=== PATIENT | female | born 1960 | race African-American/Black ===

== ENCOUNTER 2017-09-23 12:22 | Day surgery (SDC) | payer OTHER ==
[2017-09-21 15:23] VITALS: BMI 34.5
[2017-09-23] MEDS ORDERED: PROPOFOL 20 ML ONE ×3 (14:40→15:34)
[2017-09-23] MEDS ORDERED: MIDAZOLAM HCL 2 MG/2 ML SINGLE DOSE VIAL ONE (14:41)
[2017-09-23] MEDS ORDERED: DEXAMETHASONE SOD PHOSPHATE 4 MG/1 ML VIAL ONE (14:42)
[2017-09-23] MEDS ORDERED: ceFAZolin SODIUM 1 GM VIAL ONE (14:42)
[2017-09-23] MEDS ORDERED: LIDOCAINE HCL 2% JELLY (5 ML/TUBE) ONE (14:42)
[2017-09-23] MEDS ORDERED: ONDANSETRON 4 MG/2 ML VIAL ONE (14:42)
[2017-09-23] MEDS ORDERED: KETOROLAC TROMETHAMINE 30 MG/1 ML VIAL ONE (14:42)
[2017-09-23] MEDS ORDERED: EPINEPHrine 1:1,000 1 MG/1 ML - 30ML VIAL (INJECTION) ONE (15:38)
[2017-09-23] MEDS ORDERED: BUPIVACAINE HCL/PF 2.5 MG/ML - 30 ML VIAL IJ ONE (15:39)
[2017-09-23] MEDS ORDERED: BUPIVACAINE HCL/PF 0.25% (2.5MG/ML) 10 ML VIAL IJ ONE (15:40)
[2017-09-23] MEDS ORDERED: ONDANSETRON 4 MG/2 ML VIAL IVPUSH PRN (15:58)
[2017-09-23] MEDS ORDERED: PROMETHAZINE HCL 25 MG/1 ML VIAL IVPUSH PRN (15:58)
[2017-09-23] MEDS ORDERED: oxyCODONE HCL 5 MG TABLET PO PRN ×2 (15:58)
[2017-09-23] MEDS ORDERED: LACTATED RINGERS SOLUTION 1,000 ML IV SCH (16:00)
[2017-09-23] MEDS ORDERED: PROMETHAZINE HCL 25 MG/1 ML VIAL ONE (17:13)
[2017-09-23 19:46] VITALS: BP 142/80; PULSE 76; TEMP 97.8
--- NOTE | 2017-09-26 01:51 | OP ---
DATE OF OPERATION: 09/23/2017 SURGEON: Ricardo Mesa MD OPERATOR CAVITY PUMP: [place] PREOPERATIVE DIAGNOSIS: 1. Right knee mediolateral meniscal tear. 2. Right knee cartilage injury. 3. Right knee synovitis. POSTOPERATIVE DIAGNOSIS: 1. Right knee mediolateral meniscal tear. 2. Right knee cartilage injury. 3. Right knee synovitis. PROCEDURE: 1. Right knee arthroscopy with partial meniscectomy of mediolateral meniscus. 2. Right knee arthroscopy with chondroplasty and abrasioplasty. 3. Right knee arthroscopy with synovectomy and removal of medial plica. FINDINGS: 1. Medial meniscus body posterior horn tear. 2. Lateral meniscus posterior horn tear. 3. Synovitis of patellofemoral, medial and lateral notch. 4. Central grade 2-3 cartilage injury of the femoral condyle. 5. ACL and PCL intact. 6. Diffuse grade 1-2 cartilage injury of lateral tibial plateau with grade 1 changes of the lateral femoral condyle. 7. Central grade 2-3 cartilage injury of the patella with central grade 4 changes of the patella. PROCEDURE: Informed consent was obtained. The patient was taken to the operating room where the right lower extremity was prepped and draped in a sterile fashion. A tourniquet was placed on the right upper thigh but not inflated. Using standard arthroscopic technique, a lateral incision and portal were made which allowed for introduction of the camera into the suprapatellar bursa. This was then taken to the medial joint line where under direct visualization, a medial incision and portal were made. Excessive synovium noted in the medial, lateral, patellofemoral and notch area was removed by the up-biting shaver and Bovie cautery. This was found to bring inflammatory tissue into the joint surface, a source of joint pain and dysfunction. Probing of the medial and lateral meniscus found tears described in the findings. These were removed with an up-biting shaver and taken back to a stable rim. Grade 2-3 degenerative changes were treated with chondroplasty, removing all flaking surfaces with low setting Bovie used along the periphery. Grade 4 changes were treated with abrasion-plasty. All areas of the knee were once again re-examined. The knee was then drained. A single suture was placed on all portals. Sterile dressing was placed. The patient was transferred to the recovery room. RICARDO MESA M.D. EWELINA/[id number]
== END 2017-09-23 19:40 | disposition home or self-care (01) ==
LOC: FASU 12:22
PROVIDERS: ATTEND Orthopaedic Surgery
PROC: 0SBC4ZZ Excision of Right Knee Joint, Percutaneous Endoscopic Approach (ICD-10-PCS; 2017-09-23)
PROC: 0SBC4ZZ Excision of Right Knee Joint, Percutaneous Endoscopic Approach (ICD-10-PCS; 2017-09-23)
PROC: 0SBC4ZZ Excision of Right Knee Joint, Percutaneous Endoscopic Approach (ICD-10-PCS; principal; 2017-09-23 14:55)
DX: S83.241A Other tear of medial meniscus, current injury, right knee, initial encounter (principal); S83.281A Other tear of lateral meniscus, current injury, right knee, initial encounter; S83.8X1A Sprain of other specified parts of right knee, initial encounter; M65.861 Other synovitis and tenosynovitis, right lower leg; X58.XXXA Exposure to other specified factors, initial encounter; Y93.9 Activity, unspecified; Y92.9 Unspecified place or not applicable
CPT/HCPCS: 94760

== ENCOUNTER 2024-10-11 06:07 | Day surgery (SDC) | payer OTHER ==
[2024-10-05 15:30] VITALS: BMI 34.7
[2024-10-11] MEDS ORDERED: PROPOFOL 100 ML ONE (07:11)
[2024-10-11] MEDS ORDERED: MIDAZOLAM HCL 2 MG/2 ML SINGLE DOSE VIAL ONE (07:11)
[2024-10-11] MEDS ORDERED: LIDOCAINE HCL/PF 2% SDV 5ML VIAL ONE (07:11)
[2024-10-11] MEDS ORDERED: KETOROLAC TROMETHAMINE 60 MG/2 ML VIAL ONE (07:24)
[2024-10-11] MEDS ORDERED: VANCOMYCIN 1,000 MG VIAL (RESTRICTED TO ID ONLY) ONE (07:24)
[2024-10-11] MEDS ORDERED: BUPIVACAINE HCL/PF 2.5 MG/ML - 30 ML VIAL IJ ONE (07:24)
[2024-10-11] MEDS ORDERED: BUPIVACAINE HCL/PF 0.5% (5MG/ML) 10 ML VIAL ONE (07:36)
[2024-10-11] MEDS ORDERED: ROPIVACAINE HCL/PF 100 MG/20 ML VIAL ONE (07:37)
[2024-10-11] MEDS ORDERED: TRANEXAMIC ACID 1000 MG/10 ML VIAL ONE (08:23)
[2024-10-11] MEDS ORDERED: ceFAZolin SODIUM 1 GM VIAL ONE (08:23)
[2024-10-11] MEDS ORDERED: GLYCOPYRROLATE 0.2 MG/1 ML VIAL ONE (08:41)
[2024-10-11] MEDS ORDERED: PROPOFOL 40 ML ONE ×2 (09:48→09:52)
[2024-10-11] MEDS ORDERED: ONDANSETRON 4 MG/2 ML VIAL ONE (10:41)
[2024-10-11] MEDS ORDERED: ONDANSETRON 4 MG/2 ML VIAL IVPUSH PRN (11:30)
[2024-10-11] MEDS ORDERED: MAGNESIUM HYDROX 2400MG/30ML ORAL SUSPENSION 30 ML CUP PO PRN (11:30)
[2024-10-11] MEDS ORDERED: LACTATED RINGERS SOLUTION 1,000 ML IV SCH (11:30)
[2024-10-11] MEDS ORDERED: PROMETHAZINE HCL 25 MG/1 ML VIAL IVPB PRN (11:30)
[2024-10-11] MEDS ORDERED: MAG HYDROX/AL HYDROX/SIMETH 30 ML UNIT-DOSE CUP PO PRN (11:30)
[2024-10-11] MEDS: ACETAMINOPHEN 1000 MG/100 ML BAG IVPB ONE (12:25)
[2024-10-11] MEDS ORDERED: ACETAMINOPHEN INJECTION 100 ML ONE (12:25)
[2024-10-11 13:02] VITALS: RESP 18
[2024-10-11] MEDS: CEFAZOLIN SODIUM 2 GM in DEXTROSE 5%-WATER 100 ML IVPB ONE (13:30)
[2024-10-11] MEDS: oxyCODONE HCL 5 MG TABLET PO PRN (15:19)
[2024-10-11] MEDS: CEFAZOLIN SODIUM 2 GM in DEXTROSE 5%-WATER 100 ML IVPB SCH (15:19)
[2024-10-11] MEDS: LACTATED RINGERS SOLUTION 1,000 ML IV SCH (15:24)
[2024-10-11] MEDS: ACETAMINOPHEN 325 MG TABLET (FP) PO SCH (18:42)
[2024-10-11] MEDS: GABAPENTIN 300 MG CAPSULE PO SCH (22:00)
[2024-10-11] MEDS: ASPIRIN 81 MG CHEWABLE TABLETS PO SCH (22:00)
[2024-10-11] MEDS: SENNOSIDES/DOCUSATE COMBO (SENNA PLUS) TABLET (UD) PO SCH (22:00)
[2024-10-12] MEDS: oxyCODONE HCL 5 MG TABLET PO PRN (09:19)
[2024-10-12] MEDS: MULTIVITAMINS (DAILY MVI) TABLET (FP) PO SCH (09:21)
[2024-10-12] MEDS: PANTOPRAZOLE 40 MG TABLET PO SCH (09:21)
[2024-10-12] MEDS: CHOLECALCIFEROL (VIT D3) 1,000 UNIT (25 MCG) TABLET PO SCH (09:22)
[2024-10-12] MEDS: ONDANSETRON 4 MG/2 ML VIAL IVPUSH PRN (09:22)
[2024-10-12] MEDS ORDERED: amLODIPine BESYLATE 5 MG TABLET (FP) PO SCH (10:00)
[2024-10-12] MEDS ORDERED: LOSARTAN POTASSIUM 50 MG TABLET PO SCH (10:00)
[2024-10-12] MEDS ORDERED: oxyCODONE HCL 5 MG TABLET PO PRN ×2 (12:08→12:09)
[2024-10-12] MEDS: amLODIPine BESYLATE 5 MG TABLET (FP) PO SCH (13:06)
[2024-10-12] MEDS: traMADol HCL 50 MG TABLET PO PRN (13:07)
[2024-10-12] MEDS: LOSARTAN POTASSIUM 50 MG TABLET PO SCH (13:08)
[2024-10-12 13:10] VITALS: BP 127/81; PULSE 91; TEMP 98.6
== END 2024-10-12 17:26 | disposition home or self-care (01) ==
LOC: FASUSAT 06:07 → FM/S 12:41 → FASUSAT 10-12 17:26
PROVIDERS: ATTEND Internal Medicine
PROC: 8E0Y0CZ Robotic Assisted Procedure of Lower Extremity, Open Approach (ICD-10-PCS; 2024-10-11)
PROC: 0SRC0JA Replacement of Right Knee Joint with Synthetic Substitute, Uncemented, Open Approach (ICD-10-PCS; principal; 2024-10-11 08:52)
DX: M17.11 Unilateral primary osteoarthritis, right knee (principal)
CPT/HCPCS: 20985; 27447; C1776; S2900; 73560-TC-RT-FY; 94760; 97010-GP; 97116-GP; 97162-GP; J0131